=== PATIENT | female | born 1975 | race Caucasian/White ===

== ENCOUNTER 2019-02-01 16:36 | Emergency (ER) | payer SELFPAY ==
[2019-02-01] MEDS ORDERED: Morphine 4 MG/ML VIAL (1 ml) 4 MG/ML VIAL IV ONE (16:41)
[2019-02-01 17:07] LABS: ABS Basophils 0.1 10^3/ul (0-0.2); ABS Eosinophils 0.3 10^3/ul (0-0.6); ABS Lymphocytes 2.2 10^3/ul (1.0-4.8); ABS Monocytes 0.6 10^3/ul (0-0.8); ABS Neutrophils 8.2 10^3/ul (1.5-7.7); Hematocrit 41 % (35-47); Hemoglobin 13.6 g/dL (12.0-16.0); Lymphocyte % 19.1 %; Mean Corpuscular HGB Conc 33 g/dL (31-36); Mean Corpuscular Hemoglobin 28 pg (27-31); Mean Corpuscular Volume 84 fL (80-97); Mean Platelet Volume 8.9 fL (7.4-10.4); Nucleated Red Blood Cells % 0.1; Platelet Count 421 10^3/uL (150-450); Red Blood Count 4.86 10^6 /uL (3.70-4.87); Red Cell Distribution Width 13 % (10-15); White Blood Count 11.4 10^3/uL (3.5-10.8)
[2019-02-01 17:23] LABS: Albumin 3.9 g/dL (3.2-5.2); Albumin/Globulin Ratio 1.4 (1-3); BUN/Creatinine Ratio 17.3 (8-20); Calcium 8.9 mg/dL (8.6-10.3); EGFR African American 102.5 (>60); EGFR Non-African American 84.7 (>60); Globulin 2.8 g/dL (2-4); Potassium 4.1 mmol/L (3.5-5.0); Total Bilirubin 0.2 mg/dL (0.2-1.0); Total Protein 6.7 g/dL (6.4-8.9)
[2019-02-01] MEDS ORDERED: Iohexol 300* (CONTRAST) 10 ML SDV IV ONE (17:30)
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
[2019-02-01] MEDS ORDERED: Ondansetron INJ* 2 MG/ML VIAL IV ONE (18:19)
[2019-02-01] MEDS ORDERED: Morphine INJ* 2 MG/ML 1 ML SYRINGE (TWO MG - NEW SYRINGE VERSION) IV ONE (18:19)
--- NOTE | 2019-02-01 19:57 | ED ---
ED Sedation - Procedural Sedation/Analgesia Sedation Course: RT Present, Emergency Airway Equipment Available, Informed Consent Obtained, Time Out Completed, End-tidal Capnography Utilized Adverse Reactions Experienced by Patient: None Mallampati Classification: Class II ASA Classification: Class I: Normal/Healthy Diagnosis: left wrist fracture dislocation Pre-Procedural Heart: No Murmur Pre-Procedural Lungs: Clear Auscultation Comment/Plan of Care: propofol Provider Procedure Attestation: With My Signature Below, I Attest to have Personally Reviewed and Agree with the Pre-Sedation History and Pre-Service Assessment Update Cleared for Moderate Sedation: Yes Pre-Procedural Diagnosis: Left wrist fracture dislocation Post-Procedural Diagnosis: left wrist fracture dislocation Procedure: left wrist reduction Estimated Blood Loss: None Specimen(s): None Findings: None Implants/Tubes/Drains Placed: None
[2019-02-01] MEDS ORDERED: Propofol* 10 MG/ML 20 ML BTL IV PUSH ONE (20:29)
[2019-02-01] MEDS ORDERED: Propofol* 500 MG/50 ML BTL ONE (20:54)
[2019-02-01] MEDS ORDERED: Metoclopramide IV* 5 MG/ML 2 ML VIAL IV ONE (21:04)
[2019-02-01] MEDS ORDERED: oxyCODONE/Acetamin 5/325 MG* TAB PO ONE (22:23)
[2019-02-01] MEDS ORDERED: Ketorolac INJ* 30 MG/ML 1 ML VIAL IV ONE (22:31)
[2019-02-01 22:43] VITALS: BP 121/68
== END 2019-02-01 22:48 | disposition home or self-care (01) ==
LOC: ED 16:36
DX: S52.512A Displaced fracture of left radial styloid process, initial encounter for closed fracture (principal); S52.615A Nondisplaced fracture of left ulna styloid process, initial encounter for closed fracture; S80.12XA Contusion of left lower leg, initial encounter; V49.40XA Driver injured in collision with unspecified motor vehicles in traffic accident, initial encounter; Y92.410 Unspecified street and highway as the place of occurrence of the external cause; M76.9 Unspecified enthesopathy, lower limb, excluding foot; F41.9 Anxiety disorder, unspecified; Z91.09 Other allergy status, other than to drugs and biological substances; Z90.49 Acquired absence of other specified parts of digestive tract; Z90.710 Acquired absence of both cervix and uterus
CPT/HCPCS: 25605; 36415; 71260; 74177; 80053; 85025; 96374; 96375; 96376; 99156; 99157; 99283; J1885; J2270; J2405; J2704; J2765; Q9967

== ENCOUNTER 2019-02-02 13:00 | Observation (INO) | payer BC, OTHER ==
--- OUTSIDE RECORDS SUMMARY | 2019-02-02 13:36 | XMS REPORT | Continuity of Care Document ---
:1975 External Reference #:[id number] Author Name Merle Holloway M.D. (transmitted by agent of provider Rupinder Ozuna) Address [address] [place] [address] Care Team Providers Name Role Phone Karla Cobb F.N.P. - Family Care Team Information [employer] [phone] Problems Active Problems Provider Date Paroxysmal atrial fibrillation Channing Tomas DO [facility] Onset: 07/13/2016 Tenosynovitis of hand Edwin Pressley MD Onset: 11/27/2017 Ganglion cyst of right wrist Edwin Pressley MD Onset: 11/27/2017 Social History Type Date Description Comments Sex Unknown ETOH Use Denies alcohol use Tobacco Use Start: Unknown Patient has never smoked Smoking Status Reviewed: 02/02/19 Patient has never smoked Exercise Type/Frequency Exercises sporadically Allergies, Adverse Reactions, Alerts Active Allergies Reaction Severity Comments Date Polypropylene fever/infection 07/04/2016 Aleve hives 11/27/2017 Inactive Allergies NKDA 02/07/2015 Medications Active Medications SIG Qnty Indications Ordering Provider Date Venlafaxine HCL 300mg Unknown Medications Administered in Office Medication SIG Qnty Indications Ordering Provider Date Celestone 3 mg and 3mg Edwin Pressley MD 11/27/2017 Injection Celestone 3 mg and 3mg Edwin Pressley MD 11/23/2017 Injection Depomedrol 80MG Merle Holloway M.D. 02/07/2015 Injection Immunizations Description No Information Available Vital Signs Date Vital Result Comment 02/02/2019 11:53am Height 69.25 inches 5'9.25" Weight 316.00 lb Heart Rate 88 /min BP Systolic 128 mmHg BP Diastolic 88 mmHg BMI (Body Mass Index) 46.3 kg/m2 11/27/2017 10:00am Height 69 inches 5'9" Heart Rate 68 /min BP Systolic Sitting 120 mmHg BP Diastolic Sitting 90 mmHg Respiratory Rate 16 /min Body Temperature 97.5 F Pain Level 5 Results Description No Information Available Procedures Description No Information Available Medical Devices Description No Information Available Encounters Description No Information Available Assessments Date Code Description Provider 02/02/2019 S63.512A Sprain of carpal joint of left wrist, Merle Holloway M.D. initial encounter Plan of Treatment Future Appointment(s):02/16/2019 1:30 pm - Merle Holloway M.D. at [id number]/02/2019 - Merle Holloway M.D.S63.512A Sprain of carpal joint of left wrist, initial encounterFollow up:Follow up: 9-10 days postop Functional Status Description No Information Available Mental Status Description No Information Available Referrals Description No Information Available
[2019-02-02] MEDS ORDERED: Lidocaine 1% INJ* 10 MG/ML 30 ML SDV INJ ONE (13:51)
[2019-02-02] MEDS ORDERED: Lidocaine 1% INJ* 10 MG/ML 30 ML SDV ONE (13:52)
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
[2019-02-02] MEDS ORDERED: PROCHLORPERAZINE INJ 5 MG/ML 2 ML VIAL IV ONE (14:37)
[2019-02-02] MEDS ORDERED: diPHENhydraMINE IV* 50 MG/ML 1 ml VIAL (BENADRYL) IV ONE (14:38)
[2019-02-02] MEDS ORDERED: Ketorolac INJ* 30 MG/ML 1 ML VIAL IV PUSH ONE (14:38)
[2019-02-02] MEDS ORDERED: NS 0.9% 1000 ML** 1,000 ML IV ONE (14:39)
[2019-02-02] MEDS ORDERED: oxyCODONE/Acetamin 5/325 MG* TAB PO PRN ×2 (15:25)
[2019-02-02] MEDS ORDERED: diPHENhydraMINE IV* 50 MG/ML 1 ml VIAL (BENADRYL) IV PRN (15:25)
[2019-02-02] MEDS ORDERED: Acetaminophen TAB* 325 MG PO PRN (15:25)
[2019-02-02] MEDS ORDERED: Ondansetron ODT TAB* 4 MG PO PRN (15:25)
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
[2019-02-02] MEDS: Venlafaxine EXT RELEASE CAP* 75 MG PO SCH (17:28)
--- NOTE | 2019-02-02 17:29 | PN ---
Progress Note - Progress Note Date of Service: 02/02/19 Note: Patient evaluated at 17:20. She has no change in pain since earlier evaluation. She is sitting comfortably in a chair with her legs dependent. Left lower leg is tense but all compartments are compressible. Lower leg is tender, but able to palpate without severe pain. Able to flex and extend ankle and MTPs both actively and passively without pain. Extremity is warm and well perfused, no mottling, DP and PT 2+. Sensation is intact to light touch throughout lower leg / foot/ toes. DVT study ordered as it was not done before leaving the ER Please give effexor as she missed her morning dose Neurovascular checks continued, call ortho emergenty with concerns Elevate LLE on 4 pillows and ice to reduce swelling
[2019-02-02] MEDS ORDERED: Zolpidem TAB* 5 MG PO PRN (18:34)
--- NOTE | 2019-02-03 07:36 | PN ---
Progress Note - Progress Note Date of Service: 02/03/19 Note: I saw and examined jarvis this AM. She has been elevating overnight and reports great improvement in pain and swelling. Reports the leg numbness has improved. On exam her compartments are much less tense and approaching her normal side. No significant TTP about the leg except for right over her anteromedial hematoma , which is also improved. Full active ankle and toe ROM without any pain. SILT throughout the foot. No pain with passive stretch of ankle/toes. The foot is WWP , pulses faintly palpable. SYLWIA was negative for DVT Subjectively and objectively her LLE is improved this AM. I think d/c today would be fine and we discussed the need for continued elevation and icing at home. We discussed concerning symptoms that should prompt a return to the ER. All of her questions were answered. Jamison Regalado MD
[2019-02-03 08:02] VITALS: BP 143/74
[2019-02-03] MEDS: Venlafaxine EXT RELEASE CAP* 75 MG PO SCH (08:44)
[2019-02-03] MEDS ORDERED: Venlafaxine EXT RELEASE CAP* 75 MG PO SCH (09:00)
--- NOTE | 2019-02-03 10:13 | DS ---
Orthopedic Discharge Summary - Discharge Summary Date of Admission:02/02/19 Date of Discharge: 02/03/19 Date of Surgery: none Attending Orthopedic Provider: Dr Regalado Pre-operative Diagnosis: Left leg contusion r/o compartment syndrome Operative Procedure: none Disposition of Patient: home Condition of Patient: stable History: YOHANNES ANGUIANO is a 43 year old F with severe left lower leg pain. Hospital Course: YOHANNES was admitted to [facility] on 02/02/19. Compartment pressures were taken in the ER without diagnosis of compartment syndrome, Dopplar study negative for DVT. She was observed overnight and pain and swelling much reduced with ice and elevated. Her left wrist is splinted and she is able to f/e MCPs and sensation intact to light touch distally, cap refill less than two seconds distally, she has surgery scheduled with Dr Holloway for thus . She was seen by Dr Regalado as well as myself this morning and educated on signs and symptoms of compartment syndrome which warrant urgent return to the emergency room. Home Medications Medication Instructions Recorded Confirmed Type Venlafaxine ER (NF) [Effexor ER 300 mg PO DAILY 02/02/19 02/02/19 History (NF)] Acetaminophen TAB* [Tylenol TAB*] 650 mg PO Q6H PRN tab MDD 4000 mg 02/03/19 Rx Discharge Instructions following Orthopedic Surgery: Activity: * Weight Bearing as tolerated left leg. Continue to ice and elevate to decrease swelling * Nonweightbearing left arm Keep left arm splint clean dry and intact Call Orthopedic office for: * Redness * Fever Go to ER with shortness of breath or chest pain severe increased pain tense calf numbness or tingling inability to wiggle ankle or toes cold/ mottled appearance of limb Diet: * Regular diet Medications See Home Medication List in your packet for medications that you should take after discharge. Pain Control: Over the counter tylenol 650 mg every 6 hours not to exceed 4000 mg per day FOLLOW UP: Follow up with [Fabricio] Within 1 week, sooner with concerns, call for appointment Wrist surgery with Dr Holloway this Please call our office with any questions or concerns ([phone]) No RX needed
== END 2019-02-03 10:55 | disposition home or self-care (01) ==
LOC: ED 13:00 → SSU 15:25
PROVIDERS: ADMIT Orthopaedic Surgery; ATTEND Orthopaedic Surgery
DX: S80.12XA Contusion of left lower leg, initial encounter (principal); S63.005A Unspecified dislocation of left wrist and hand, initial encounter; V89.2XXA Person injured in unspecified motor-vehicle accident, traffic, initial encounter; Y92.410 Unspecified street and highway as the place of occurrence of the external cause; M79.89 Other specified soft tissue disorders; K21.9 Gastro-esophageal reflux disease without esophagitis; M79.605 Pain in left leg; Z79.899 Other long term (current) drug therapy
CPT/HCPCS: 96361; 96374; 96375; 99283; A9270-GY; G0378; J0780; J1200; J1885

== ENCOUNTER → 2019-02-05 | Day surgery (SDC) | payer BC ==
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
[~2019-02-05] MED LIST: Buffered Lidocaine 1% SYRIN* 1 ML/SYRINGE INTRADERM ONE; Bupivacaine 0.5%* 50 ML MDV VIAL ONE; Dexamethasone IV* 4 MG/ML 1 ML (4 MG) ONE; EPHEDrine (Pressors)* 50 MG/ML VIAL ONE; Famotidine IV* 10 MG/ML 2 ML (20 mg) IV ONE; Famotidine IV* 10 MG/ML 2 ML (20 mg) ONE; HYDROcodone/ACETAMIN 5-325 MG* 1 TAB ONE; KETAMINE HCL* 50 MG/ML 10 ML VIAL ONE; Ketorolac INJ* 30 MG/ML 1 ML VIAL ONE; Lactated Ringers 1000 ML Bag* 1,000 ML IV SCH; Lidocaine 2% PF * 5 ML VIAL ONE; Midazolam* 1 MG/ML 5 ML VIAL (5 MG) ONE; Naloxone* 0.4 MG/ML 1 ML VIAL IV PRN; Ondansetron INJ* 2 MG/ML VIAL IV PRN; Ondansetron INJ* 2 MG/ML VIAL ONE; Propofol* 10 MG/ML 20 ML BTL ONE; ceFAZolin 2 GM in NS PREMIX(*) 2 GM/100 ML BAG IVPB ONE; fentaNYL* 50 MCG/ML 2 ML VIAL (100 MCG VIAL) ONE
[2019-02-05] MEDS: fentaNYL* 50 MCG/ML 2 ML VIAL (100 MCG VIAL) IV PRN ×3 (11:00→12:17)
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
[2019-02-05 14:11] VITALS: BP 101/54
== END | disposition home or self-care (01) ==
LOC: OR 06:45
PROVIDERS: ATTEND Orthopaedic Surgery
DX: S52.512A Displaced fracture of left radial styloid process, initial encounter for closed fracture (principal); S63.512A Sprain of carpal joint of left wrist, initial encounter; V49.9XXA Car occupant (driver) (passenger) injured in unspecified traffic accident, initial encounter; Y92.410 Unspecified street and highway as the place of occurrence of the external cause
CPT/HCPCS: 76000; C1713; C1776; J0690; J1100; J1885; J2250; J2405; J2704; J3010; J3490

== ENCOUNTER 2019-04-03 12:15 | Day surgery (SDC) | payer BC, OTHER ==
[~2019-04-03 12:15] MED LIST changes: -Buffered Lidocaine 1% SYRIN* 1 ML/SYRINGE INTRADERM ONE; -Bupivacaine 0.5%* 50 ML MDV VIAL ONE; -Dexamethasone IV* 4 MG/ML 1 ML (4 MG) ONE; -EPHEDrine (Pressors)* 50 MG/ML VIAL ONE; -Famotidine IV* 10 MG/ML 2 ML (20 mg) ONE; -HYDROcodone/ACETAMIN 5-325 MG* 1 TAB ONE; -KETAMINE HCL* 50 MG/ML 10 ML VIAL ONE; -Ketorolac INJ* 30 MG/ML 1 ML VIAL ONE; -Lidocaine 2% PF * 5 ML VIAL ONE; -Midazolam* 1 MG/ML 5 ML VIAL (5 MG) ONE; -Naloxone* 0.4 MG/ML 1 ML VIAL IV PRN; -Ondansetron INJ* 2 MG/ML VIAL IV PRN; -Ondansetron INJ* 2 MG/ML VIAL ONE; -Propofol* 10 MG/ML 20 ML BTL ONE; -ceFAZolin 2 GM in NS PREMIX(*) 2 GM/100 ML BAG IVPB ONE; -fentaNYL* 50 MCG/ML 2 ML VIAL (100 MCG VIAL) ONE
[2019-04-03] MEDS ORDERED: Famotidine IV* 10 MG/ML 2 ML (20 mg) ONE (12:39)
[2019-04-03] MEDS: Buffered Lidocaine 1% SYRIN* 1 ML/SYRINGE INTRADERM ONE ×2 (12:54→13:09)
[2019-04-03] MEDS ORDERED: Buffered Lidocaine 1% SYRIN* 1 ML/SYRINGE INTRADERM ONE (13:00)
[2019-04-03] MEDS ORDERED: Midazolam* 1 MG/ML 5 ML VIAL (5 MG) ONE (13:03)
[2019-04-03] MEDS ORDERED: Bupivacaine 0.5% SDV PF* 30ML VIAL ONE (13:39)
[2019-04-03] MEDS ORDERED: Naloxone* 0.4 MG/ML 1 ML VIAL IV PRN (13:47)
[2019-04-03] MEDS ORDERED: Acetaminophen TAB* 325 MG PO PRN (13:47)
[2019-04-03] MEDS ORDERED: Ketorolac INJ* 30 MG/ML 1 ML VIAL ONE (13:59)
[2019-04-03] MEDS ORDERED: Dexamethasone IV* 4 MG/ML 1 ML (4 MG) ONE (13:59)
[2019-04-03] MEDS ORDERED: Ondansetron INJ* 2 MG/ML VIAL ONE (13:59)
[2019-04-03] MEDS ORDERED: Propofol* 10 MG/ML 20 ML BTL ONE (13:59)
[2019-04-03] MEDS ORDERED: HYDROmorphone INJ* 0.5 MG/0.5 ML SYRINGE ONE (14:10)
[2019-04-03] MEDS ORDERED: Acetaminophen TAB* 325 MG ONE (15:00)
[2019-04-03 15:39] VITALS: BP 136/73
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
== END 2019-04-03 15:30 | disposition home or self-care (01) ==
LOC: OREAST 12:15
PROVIDERS: ATTEND Orthopaedic Surgery
PROC: 0LPX0JZ Removal of Synthetic Substitute from Upper Tendon, Open Approach (ICD-10-PCS; principal; 2019-04-03 13:45)
DX: S52.512D Displaced fracture of left radial styloid process, subsequent encounter for closed fracture with routine healing (principal); S63.512D Sprain of carpal joint of left wrist, subsequent encounter; I48.0 Paroxysmal atrial fibrillation; K21.9 Gastro-esophageal reflux disease without esophagitis; F41.8 Other specified anxiety disorders; E66.01 Morbid (severe) obesity due to excess calories; Z98.890 Other specified postprocedural states; Z90.710 Acquired absence of both cervix and uterus; Z90.49 Acquired absence of other specified parts of digestive tract; X58.XXXD Exposure to other specified factors, subsequent encounter; Z68.41 Body mass index [BMI] 40.0-44.9, adult
CPT/HCPCS: 88300; A9270-GY; J1100; J1170; J1885; J2250; J2405; J2704; J3490